=== PATIENT | female | born 1970 | race Caucasian/White ===

== ENCOUNTER 2019-12-24 08:00 | Emergency (ER) | payer SELFPAY ==
--- NOTE | 2019-12-24 08:13 | ED.GENADULT ---
HPI - General Adult General Chief complaint: Upper Respiratory Infection Stated complaint: Ear/Nose /Throat Source: patient and RN notes reviewed Mode of arrival: ambulatory Limitations: no limitations History of Present Illness HPI narrative: 49-year-old female presents with upper respiratory infection, low-grade fever of 99.7 orally, some facial congestion, facial pressure, and intermittent headache (not the worst of her life) for 1 day. Tylenol and Nyquil gel capsules without relief. No facial swelling. Intermittent dry cough. Nasal congestion and rhinorrhea. Sore throat. Pain is bilateral. Hurts to swallow. No high fevers, drooling, neck or throat swelling. No voice change. Denies chills, dyspnea, difficulty swallowing, jaw pain, dental pain, foreign body sensation, and rash. No chest pain or shortness of breath. LMP 11/18/19, Olivia says she is pre-menopausal. The patient reports she have not been diagnosed with COVID-19. The patient reports she is not waiting for the results of a COVID-19 lab test. The patient reports she do not have chills, weakness, fatigue, myalgia, or facial swelling. The patient reports she do not have a worsening cough or shortness of breath. Denies chest pain. The patient reports she do not have any nausea, vomiting, abdominal pain, and diarrhea. Tolerating po intake well. Denies recent traveling. Denies concerns for COVID-19 or exposures been home with limited outdoor exposure except for essential household needs, work, and return home. At this time, patient is not suspected of having COVID-19. Some parts of this dictation were generated by voice recognition software and may contain typographical and/or grammatical inaccuracies. Related Data Home Medications Medication Instructions Recorded Confirmed olanzapine [Zyprexa] 2.5 mg PO HS 12/24/19 12/24/19 sertraline [Zoloft] 100 mg PO DAILY 12/24/19 12/24/19 Allergies Allergy/AdvReac Type Severity Reaction Status Date / Time Penicillins Allergy Mild Unknown Verified 07/07/19 09:14 Review of Systems Review of Systems: Narrative: CONSTITUTIONAL: Denies chills, sweats. Complains of low-grade fever of 99.7 orally. EYES: Denies visual changes, redness, discharge. ENT: Complains of rhinorrhea, congestion, facial congestion and pressure, sore throat, LT otalgia. CARDIOVASCULAR: Denies chest pain, palpitations, edema. RESPIRATORY: Denies dyspnea, wheezing. Complains of intermittent dry cough. GASTROINTESTINAL: Denies abdominal pain, nausea, vomiting, diarrhea. GENITOURINARY: Denies dysuria, hematuria, abnormal discharge SKIN: Denies rash or itching. MUSCULOSKELETAL: Denies acute back pain, joint pain, or myalgia. NEUROLOGIC: Denies numbness, or focal weakness. Complains of intermittent YAP. PSYCHIATRIC: Denies anxiety or depression. All other systems reviewed & are unremarkable except as noted in HPI and below. [facility] Past Medical History Medical History (Updated 12/24/19 @ 08:47 by CATE Peters) Anxiety Surgical History Surgical History (Updated 12/24/19 @ 08:47 by CATE Peters) History of exploratory laparotomy For growth on ovary (unsure which one) History of tonsillectomy Hx of appendectomy Family History Family History (Updated 12/24/19 @ 08:45 by CATE Peters) Father Diabetes mellitus Heart disease Mother , [place] No problems noted. Social History Social History (Updated 12/24/19 @ 08:44 by CATE Peters) Smoking packs per day: 0.5 Smoking cigarettes per day: 10.0 Years smoked: 20 Smoking pack-years: 10.00 Smoking status: Current every day smoker Alcohol intake: current Substance use: current Substance use type: marijuana Living arrangements: with family Occupation/Education: occupation Gender identity (if verbalized by the patient): Female Comments At time of signature, agree with nurse past medical, surgical, so
[2019-12-24 08:25] VITALS: BP 122/79; PULSE 80; RESP 20; TEMP 36.9; O2SAT 98
== END 2019-12-24 08:40 | disposition home or self-care (01) ==
PROVIDERS: Emergency Provider Nurse Practitioner Family; PCP Internal Medicine
DX: J02.9 Acute pharyngitis, unspecified (principal); B34.9 Viral infection, unspecified; F17.290 Nicotine dependence, other tobacco product, uncomplicated; F12.90 Cannabis use, unspecified, uncomplicated
CPT/HCPCS: 87081; 87804; 87880; 99213; G0463

== ENCOUNTER → 2019-12-27 | Outpatient (NON) | payer OTHER, SELFPAY ==
[2019-12-27 20:03] LABS: SARS-CoV-2 RNA PCR Negative
== END | disposition home or self-care (01) ==
LOC: ANHCOVIDDT 07:57
PROVIDERS: Visit Provider Nurse Practitioner Family
DX: J02.9 Acute pharyngitis, unspecified (principal); J32.9 Chronic sinusitis, unspecified; Z20.828 Contact with and (suspected) exposure to other viral communicable diseases
CPT/HCPCS: 87635; C9803; U0003

== ENCOUNTER 2022-02-01 09:22 | Emergency (ER) | payer BC, SELFPAY ==
[2022-02-01 09:45] VITALS: BP 148/89; PULSE 93; RESP 16; TEMP 36.6; O2SAT 100
--- NOTE | 2022-02-01 09:49 | ED.URI ---
HPI - URI/Sore Throat General Chief Complaint: Upper Respiratory Infection Stated Complaint: Sore Throat Time Seen by Provider: 02/01/22 09:50 Source: patient and RN notes reviewed Mode of arrival: ambulatory Limitations: no limitations History of Present Illness HPI Narrative: 51-year-old female presents with concern for 3-day history of sore throat, rhinorrhea, chills, sweats, headache. She reports she took Tylenol without relief. She denies any known sick contacts she reports occasional cough that she relates to postnasal drainage. She denies shortness of breath, nausea, vomiting, diarrhea. MD elicited complaint: sore throat and rhinorrhea Related Data Home Medications Medication Instructions Recorded Confirmed sertraline 100 mg tablet (Zoloft) 100 mg PO DAILY 12/24/19 02/01/22 alprazolam 0.5 mg tablet 0.5 mg PO HS 02/01/22 02/01/22 Allergies Allergy/AdvReac Type Severity Reaction Status Date / Time Penicillins Allergy Mild Unknown Verified 02/01/22 09:59 Review of Systems Review of Systems: CONSTITUTIONAL: Reports malaise, chills, sweats EYES: Denies visual changes, redness, or discharge. ENT: Reports rhinorrhea, otalgia, and sore throat. CARDIOVASCULAR: Denies chest pain, palpitations, or edema. RESPIRATORY: Reports occasional cough. Denies dyspnea. GASTROINTESTINAL: Denies abdominal pain, nausea, vomiting, diarrhea SKIN: Denies rash or itching. MUSCULOSKELETAL: Reports myalgia. NEUROLOGIC: Reports headache. All systems reviewed & are unremarkable except as noted in HPI and below PMFSH Past Medical History Medical History (Updated 02/01/22 @ 10:20 by Jennifer Patel NP) Anxiety Surgical History Surgical History (Updated 12/24/19 @ 08:47 by CATE Peters) History of exploratory laparotomy For growth on ovary (unsure which one) History of tonsillectomy Hx of appendectomy Family History Family History (Updated 12/24/19 @ 08:45 by CATE Peters) Father Diabetes mellitus Heart disease Mother , [place] No problems noted. Social History Social History (Updated 12/24/19 @ 08:44 by CATE Peters) Smoking packs per day: 0.5 Smoking cigarettes per day: 10.0 Years smoked: 20 Smoking pack-years: 10.00 Smoking status: Current every day smoker Alcohol intake: current Substance use: current Substance use type: marijuana Gender identity (if verbalized by the patient): Female Comments At time of signature, agree with nursing past medical, surgical, social and family history. There is no relevant family history pertinent to the presenting complaint Exam Narrative: GENERAL: Nontoxic-appearing and in no acute distress. HEAD: Normocephalic EYES: PERRLA, conjunctivae clear ENT: Nares clear, turbinates edematous and erythematous, clear discharge. Mucous membranes moist. TM pearly allen with dull light reflex bilaterally; no tragal tenderness. Oropharynx not erythematous without lesions. Tonsils not enlarged and without exudate, no drooling, no hoarseness, no trismus, uvula midline. NECK: Supple. No lymphadenopathy CHEST: Clear to auscultation, breath sounds equal. No wheezing, rhonchi, rales, or stridor. No respiratory distress, speaks in full sentences. HEART: Regular rate and rhythm. No murmur heard. SKIN: Warm, dry, no rash. NEURO: Alert and oriented x3. PSYCH: Normal mood and affect Course Course Emergency Course: Patient is aware of diagnosis, understands and agrees to treatment plan. Anticipatory guidance given. Patient agrees to follow-up as directed and is aware of reasons to seek care at the emergency department. Portions of this record may have been created with voice recognition software Level of Care: Express Care Visit Vital Signs Vital signs: Vital Signs Temperature 97.8 F 02/01/22 09:45 Pulse Rate 93 02/01/22 09:45 Respiratory Rate 16 02/01/22 09:45 Blood Pressure 148/89 H 02/01/22 09:45 Pulse O
== END 2022-02-01 10:27 | disposition home or self-care (01) ==
PROVIDERS: Emergency Provider Nurse Practitioner
DX: J06.9 Acute upper respiratory infection, unspecified (principal); Z20.822 Contact with and (suspected) exposure to COVID-19; F17.210 Nicotine dependence, cigarettes, uncomplicated; F41.9 Anxiety disorder, unspecified
CPT/HCPCS: 87081; 87426; 87880; 99213; C9803; G0463